=== PATIENT | male | born 1970 | race Two or more races ===

== ENCOUNTER 2018-09-16 21:42 | Inpatient (IN) | payer OTHER ==
[~2018-09-16] VITALS: Ht 185.4 cm; Wt 109.8 kg
[2018-09-17] MEDS ORDERED: IBUPROFEN 600MG TABLET PO STA (02:17)
[2018-09-17 02:42] LABS: CLARITY URINE CLOUDY (CLEAR); COLOR URINE YELLOW (YELLOW); KETONES URINE NEGATIVE (NEGATIVE); LEUKOCYTE ESTERASE URINE 2+ (NEGATIVE); NITRITE URINE POSITIVE (NEGATIVE); OCCULT BLOOD URINE 1+ (NEGATIVE); PROTEIN URINE NEGATIVE (NEGATIVE); SPECIFIC GRAVITY URINE 1.024 (1.005-1.030); UROBILINOGEN URINE 0.2 E.U./dL (0.2-1.0)
[2018-09-17 02:44] LABS: BASOPHILS % 0.2 % (0.0-2.0); EOSINOPHILS % 0.1 % (0.0-5.0); HEMATOCRIT. 42.6 % (42.0-52.0); HEMOGLOBIN. 14.6 g/dL (14.0-18.0); LYMPHOCYTES % 10.5 % (20.0-50.0); MEAN CORPUSCULAR HEMOGLOBIN 30.8 pg (28.0-32.0); MEAN CORPUSCULAR VOLUME 89.7 fL (80.0-94.0); MEAN PLATELET VOLUME 9.8 fl (7.4-10.4); MONOCYTES % 7.7 % (2.0-8.0); NEUTROPHILS % 81.5 % (40.0-76.0); PLATELET 144 x1000/uL (130-400); RED BLOOD CELL COUNT 4.75 mill/uL (4.7-6.1); RED CELL DISTRIBUTION WIDTH 12.4 % (11.6-14.6)
[2018-09-17 02:52] LABS: CHLORIDE 103 mEq/L (98-107)
[2018-09-17] MEDS ORDERED: LIDOCAINE HCL 1% 20ML VIAL (Pyxis) INJ INFIL ONE (03:30)
[2018-09-17] MEDS ORDERED: CEFTRIAXONE SODIUM 1 G/VIAL IM ONE (03:30)
[2018-09-17] MEDS ORDERED: CEFTRIAXONE 1 G PREMIX 50 ML IV SCH (04:27)
[2018-09-17] MEDS ORDERED: SODIUM CHLORIDE 0.9% 1,000 ML IV SCH (05:58)
[2018-09-17 08:00] VITALS: BP 127/73
[2018-09-17] MEDS ORDERED: ACETAMINOPHEN 325MG TABLET PO PRN (08:45)
[2018-09-17] MEDS ORDERED: ONDANSETRON HCL 4MG/2ML INJ IV PRN (08:45)
[2018-09-17 09:00] VITALS: BP 127/73
[2018-09-17] MEDS ORDERED: SODIUM CHLORIDE 0.45% 1,000 ML IV SCH (09:00)
[2018-09-17 12:00] VITALS: BP 131/71
[2018-09-17] MEDS ORDERED: CEFTRIAXONE 1 G PREMIX 50 ML IV ONE (12:15)
[2018-09-17 15:09] LABS: HEMATOCRIT 41.9 % (42.0-52.0); HEMOGLOBIN 14.4 g/dL (14.0-18.0); MEAN CORPUSCULAR HEMOGLOBIN 30.6 pg (28.0-32.0); MEAN CORPUSCULAR VOLUME 89.1 fL (80.0-94.0); PLATELET 149 x1000/uL (130-400); RED BLOOD CELL COUNT 4.71 mill/uL (4.7-6.1); RED CELL DISTRIBUTION WIDTH 12.5 % (11.6-14.6)
[2018-09-17 15:12] VITALS: BP 131/71
[2018-09-17 16:00] VITALS: BP 136/79
[2018-09-18] MEDS ORDERED: CEFTRIAXONE 1 G PREMIX 50 ML IV SCH (06:00)
== END 2018-09-17 15:30 | disposition home or self-care (01) | DRG 690 ==
LOC: ER 21:42 → 6EST 09-17 06:01 → EDBEDREQSVC 09-17 06:09 → EDBEDREQ 09-17 06:09 → EDBEDREQTM 09-17 06:09 → ENRESERV 09-17 07:05
PROVIDERS: ADMIT Internal Medicine Nephrology; ATTEND Internal Medicine Nephrology
DX: N39.0 Urinary tract infection, site not specified (principal); E66.9 Obesity, unspecified; K76.0 Fatty (change of) liver, not elsewhere classified; Z87.440 Personal history of urinary (tract) infections; Z68.31 Body mass index [BMI] 31.0-31.9, adult; Z71.3 Dietary counseling and surveillance
CPT/HCPCS: 36415; 74176; 83036; 85027; 87077; 87186; 96365; 99285; J0696